=== PATIENT | male | born 1975 | race Caucasian/White ===

== ENCOUNTER → 2025-07-30 08:29 | Outpatient (BNVA) | payer OTHER, SELFPAY | PROVIDERS: Family Provider Nurse Practitioner Family; PCP Nurse Practitioner Family; Visit Provider Specialist | DX: G56.03 Carpal tunnel syndrome, bilateral upper limbs (principal); G56.22 Lesion of ulnar nerve, left upper limb; M54.2 Cervicalgia | CPT/HCPCS: 72050; 73110 ==